=== PATIENT | male | born 1965 | race Asian ===

== ENCOUNTER 2023-11-09 15:35 | Emergency (ER) | payer SELFPAY ==
[~2023-11-09] VITALS: Ht 170.2 cm; Wt 67.1 kg
[2023-11-09 15:43] VITALS: BP_SYST 112; PULSE 85; RESP 19; TEMP 99.1; O2SAT 98
[2023-11-09 16:58] LABS: COVID19 ANTIGEN SOFIA FIA NEGATIVE (NEGATIVE); INFLUENZA TYPE A Negative (NEGATIVE); INFLUENZA TYPE B NEGATIVE (NEGATIVE)
[2023-11-09] MEDS ORDERED: AMOX250C PO (17:42)
[2023-11-09 17:49] VITALS: BP_SYST 117; PULSE 79; RESP 19; TEMP 99.1; O2SAT 98
== END 2023-11-09 17:49 | disposition home or self-care (01) ==
LOC: EDSEX 15:35 → SED 15:35
DX: J02.9 Acute pharyngitis, unspecified (principal); Z79.899 Other long term (current) drug therapy; Z20.822 Contact with and (suspected) exposure to COVID-19
CPT/HCPCS: 36415; 99283